=== PATIENT | female | born 1990 | race Two or more races ===

== ENCOUNTER 2022-05-10 11:31 | Inpatient (IN) | payer OTHER | END 2022-05-13 16:47 | disposition home or self-care (01) | DRG 744 | LOC: CIR.AMB 11:31 → ICU 21:33 | PROVIDERS: ADMIT Specialist; ATTEND Specialist | PROC: BW21ZZZ Computerized Tomography (CT Scan) of Abdomen and Pelvis (ICD-10-PCS; 2022-05-10) | PROC: 0UB74ZZ Excision of Bilateral Fallopian Tubes, Percutaneous Endoscopic Approach (ICD-10-PCS; principal; 2022-05-11) | DX: Z30.2 Encounter for sterilization (principal); D62 Acute posthemorrhagic anemia; N99.840 Postprocedural hematoma of a genitourinary system organ or structure following a genitourinary system procedure; Z20.822 Contact with and (suspected) exposure to COVID-19 | CPT/HCPCS: 72195; 74181 ==